=== PATIENT | female | born 1955 | race Caucasian/White ===

== ENCOUNTER 2016-07-16 07:53 | Emergency (ER) | payer OTHER ==
[2016-07-16] MEDS ORDERED: ONDANSETRON 4 MG/2 ML VIAL IVP ONE (08:06)
[2016-07-16] MEDS ORDERED: NS 1,000 ML IV ONE (08:06)
[2016-07-16] MEDS ORDERED: PANTOPRAZOLE SODIUM 40 MG VIAL IVP ONE (08:16)
[2016-07-16 08:25] LABS: % IMMATURE GRANULYOCYTES 0.5 % (0.0-1.1); ABSOLUTE IMMATURE GRANULOCYTES 0.04 10^3/uL (0.00-0.10); ADD DIFF? NO; ADD MORPH? NO; ADD SCAN? NO; ATYPICAL LYMPHOCYTE FLAG 10 (0-99); FRAGMENT RBC FLAG 0 (0-99); HEMOGLOBIN 13.4 g/dL (12.6-16.3); LEFT SHIFT FLG 0 (0-99); LIPEMIA HEMOLYSIS FLAG 90 (0-99); MEAN CELL HEMOGLOBIN 31.1 pg (27.9-34.1); MEAN CELL HEMOGLOBIN CONCENTR. 34.4 g/dL (32.4-36.7); MEAN CELL VOLUME 90.5 fL (81.5-99.8); MEAN PLATELET VOLUME 9.7 fL (8.7-11.7); PLATELET CLUMPS FLAG 0 (0-99); PLATELET COUNT 234 10^3/uL (150-400); RED BLOOD CELL COUNT 4.31 10^6/uL (4.18-5.33)
--- NOTE | 2016-07-16 08:29 | UCPHY ---
H & P Patient Type: New Chief Complaint Nursing Narrative: PAIN BETWEEN SCAPULA AND RUQ PAIN SINCE NIGHT. WOKE UP WITH PAIN. SEEN FRI AT URGENT CARE. GIVEN PRILOSEC. NAUSEA. Time Seen by Provider: 07/16/16 08:03 HPI/ROS: This patient complains of right upper quadrant pain radiating to her back since , 4 days prior to arrival- gradual in onset. She describes the nature the pain as achy in the right upper quadrant and somewhat sharp in her back. The current intensity 6/10 but it has peaked out of 10/10 at times. She feels that both ibuprofen and antacids have diminished her symptoms. She notes no clear exacerbating factors except that when she eats normal food she gets nauseous and vomits. As result the last meal she had a Saturday, 2 days prior to arrival and since then she has been snacking on saltines and milk. Pain does not seem to be positional to her but does seem worse at night. No other clear exacerbating or alleviating factors. At the moment she has no nausea. She was seen at [facility] urgent care clinic on Saturday, 3 days prior to arrival and diagnosed with GERD with a normal urinalysis at that time started on Prilosec. ROS: No fevers or chills. No other constitutional symptoms. HEENT: No URI symptoms. No headache. Neuro: No complaints pulmonary: No cough. No pleuritic element of the pain. No worsening with deep breath. Cardiovascular: No heart palpitations or lightheadedness. No lower extremity swelling. GI: No bloating. She reports mild right lower belly discomfort over the last 24 hours as well. She had normal bowel movements until Saturday but no bowel movements since Saturday. : No urinary symptoms. No hematuria. Integumentary: No skin rash and 10 point ROS is otherwise negative. Source: Patient Exam Limitations: No limitations - Personal History Current Tetanus/Diphtheria Vaccine: Yes Current Tetanus Diphtheria and Acellular Pertussis (TDAP): Unsure - Medical/Surgical History Hx Asthma: No Hx Chronic Respiratory Disease: No Hx Diabetes: No Hx Cardiac Disease: No Hx Renal Disease: No Hx Cirrhosis: No Hx Alcoholism: No Hx HIV/AIDS: No Hx Splenectomy or Spleen Trauma: No Other PMH: PMH:SLEEP APNEA. PSH:OVARIES AND CYST REMOVED 01/13 - Family History Significant Family History: No pertinent family hx - Social History Smoking Status: Never smoked Alcohol Use: Occasionally Drug Use: None - Physical Exam Exam: General Appearance: Alert, no distress. Eyes: Pupils equal and round no pallor or injection. ENT, Mouth: Mucous membranes moist. Respiratory: There are no retractions, lungs are clear to auscultation. Cardiovascular: Regular rate and rhythm. Gastrointestinal: Normoactive to slightly hypoactive bowel sounds. She has moderate right upper quadrant tenderness that is worse with percussion. No significant lower belly tenderness she describes mild fullness feeling in the right lower belly to palpation. No organomegaly. Back: No CVA tenderness Neurological: Alert with no focal deficits Skin: Warm and dry, no rashes. Musculoskeletal: Neck is supple nontender. Extremities are symmetrical, full range of motion. Psychiatric: Mood and affect normal DIFFERENTIAL DIAGNOSIS: After history and physical exam differential diagnosis was considered for symptomatic gallstones, cholecystitis, pancreatitis, gastritis, constipation, viral illness, ureteral stone, pyelonephritis Constitutional: Initial Vital Signs Temperature (C) 36.4 C 07/16/16 07:55 Heart Rate 99 07/16/16 07:55 Respiratory Rate 16 07/16/16 07:55 Blood Pressure 129/62 H 07/16/16 07:55 O2 Sat (%) 96 07/16/16 07:55 O2 Delivery Mode Room Air Allergies/Adverse Reactions: No Known Allergies Allergy (Unverified 07/16/16 08:07) Home Medications: Medication Instructions Recorded Prilosec Unk Dose 07/16/16 Medical Decision Making - Diagnostics EKG Interpretation: 12 lead EKG performed at 9:19 a.m. indication chest pain reveals sinus rhythm at 86 Intervals: Normal throughout [place]: P of 27, QRS of 15, T of 28 ST segments: Normal throughout. Q-waves are notable for anterior cues in V2 Overall assessment: possible old anteroseptal infarct Repeat EKG performed at 11:33 a.m. to rule out interval change-sinus rhythm at 87 without interval changes by my interpretation. Imaging: CT angio chest: Read by Dr. Néstor Beebe-radiologist is negative for PE or thoracic aorta abnormalities. No abnormal findings except for what appears to be a fatty liver though the liver is incompletely visualized. Dr. Beebe recommends a follow-up MRI as an outpatient to be done within the next 2 months ED Course/Re-evaluation: IV, I reviewed labs-normal CBC and comp metabolic panel with trace hematuria at 9:00 a.m. and re-evaluated the patient. On recheck. She clearly does not have CVA tenderness on the right side however she points to an area higher and in the back pain initially realizing this pain actually seems to be right low chest rather than belly in terms of the back component of the right eating pain. This brings up a large differential diagnosis to include potential pleural processes or cardiac process. EKG is added, D-dimer added Patient's EKG is abnormal. We do not have a previous baseline. Her D-dimer is also elevated. Given these findings she is placed on a monitor and given aspirin 324. At around 925 and I spoke to her she reported that her pain had increased to a severe intensity She is given 1 sublingual nitroglycerin. After several nitroglycerin her discomfort is significantly reduced in the right upper quadrant and posterior thorax but she does complain of a severe headache similar to previous headaches. She has been treated with 4 mg of morphine IV and 0.5 inch nitro paste with troponin added and pending. Patient has partial improvement from nitroglycerin down to a 3 or 4/10 discomfort. She remained stable on the monitor with no further complaints. Her initial troponin is normal. I am concerned about potential cardiac source of pain in this patient I counseled her regarding this. Given her ongoing symptoms and abnormal baseline EKG I recommend and observation admission. She requests [facility] due to proximity to her home. I spoke with Dr. Becker-hospitalist at [facility] who accepts patient for transfer for a observation note for chest pain-further evaluation The patient declines [facility] transport. Her is here and she signed AMA to go by private ankle understanding the potential risk of dysrhythmia, cardiac - arrest, . She is stable time of transfer. - Data Points Laboratory Results: Laboratory Results 07/16/16 08:15 07/16/16 08:15 07/16/16 07/16/16 08:50 08:15 WBC 8.69 10^3/uL (3.80-9.50) RBC 4.31 10^6/uL (4.18-5.33) Hgb 13.4 g/dL (12.6-16.3) Hct 39.0 % (38.0-47.0) MCV 90.5 fL (81.5-99.8) MCH 31.1 pg (27.9-34.1) MCHC 34.4 g/dL (32.4-36.7) RDW 12.0 % (11.5-15.2) Plt Count 234 10^3/uL (150-400) MPV 9.7 fL (8.7-11.7) Neut % (Auto) 70.1 % (39.3-74.2) Lymph % (Auto) 16.2 % (15.0-45.0) [place] % (Auto) 12.0 % (4.5-13.0) Eos % (Auto) 0.7 % (0.6-7.6) Baso % (Auto) 0.5 % (0.3-1.7) Nucleat RBC Rel Count 0.0 % (0.0-0.2) Absolute Neuts (auto) 6.10 10^3/uL (1.70-6.50) Absolute Lymphs (auto) 1.41 10^3/uL (1.00-3.00) Absolute Monos (auto) 1.04 H 10^3/uL (0.30-0.80) Absolute Eos (auto) 0.06 10^3/uL (0.03-0.40) Absolute Basos (auto) 0.04 10^3/uL (0.02-0.10) Absolute Nucleated RBC 0.00 10^3/uL (0-0.01) Immature Gran % 0.5 % (0.0-1.1) Immature Gran # 0.04 10^3/uL (0.00-0.10) PT 12.7 SEC (12.0-15.0) INR 0.97 (0.83-1.16) APTT 29.9 SEC (23.0-38.0) D-Dimer 1.75 H ug/mLFEU (0.00-0.50) Sodium 140 mEq/L (134-144) Potassium 4.0 mEq/L (3.5-5.2) Chloride 103 mEq/L (97-110) Carbon Dioxide 28 mEq/l (22-31) Anion Gap 9 mEq/L (8-16) BUN 10 mg/dL (7-23) Creatinine 0.7 mg/dL (0.6-1.0) Estimated GFR > 60 Glucose 106 H mg/dL (70-100) Calcium 9.2 mg/dL (8.5-10.4) Total Bilirubin 0.7 mg/dL (0.1-1.4) AST 18 IU/L (14-46) ALT 31 IU/L (9-52) Alkaline Phosphatase 91 IU/L (38-126) Troponin I < 0.012 ng/mL (0-0.034) Total Protein 6.9 g/dL (6.3-8.2) Albumin 3.5 g/dL (3.5-5.0) Lipase 57.0 IU/L (23-300) Urine Color YELLOW Urine Appearance CLEAR Urine pH 6.0 (5.0-7.5) Ur Specific [place] <= 1.005 (1.002-1.030) Urine Protein NEGATIVE (NEGATIVE) Urine Ketones NEGATIVE (NEGATIVE) Urine Blood TRACE H (NEGATIVE) Urine Nitrate NEGATIVE (NEGATIVE) Urine Bilirubin NEGATIVE (NEGATIVE) Urine Urobilinogen 0.2 EU (0.2-1.0) Ur Leukocyte Esterase NEGATIVE (NEGATIVE) Urine RBC 1-3 /hpf (0-3) Urine WBC 0-1 /hpf (0-3) Ur Epithelial Cells 1+ /lpf (NONE-1+) Urine Bacteria TRACE H /hpf (NONE SEEN) Urine Yeast OCCASIONAL H /hpf (NONE SEEN) Urine Glucose NEGATIVE (NEGATIVE) Medications Given: Discontinued Medications Aspirin (Aspirin) 324 mg PO EDNOW ONE Stop: 07/16/16 09:23 Last Admin: 07/16/16 09:32 Dose: 324 mg Sodium Chloride (Ns) 1,000 mls @ 0 mls/hr IV ONCE ONE PRN Reason: Wide Open Stop: 07/16/16 08:07 Last Admin: 07/16/16 08:15 Dose: 1,000 mls Morphine Sulfate (Morphine) 4 mg IVP EDNOW ONE Stop: 07/16/16 09:39 Last Admin: 07/16/16 09:47 Dose: Not Given Nitroglycerin (Nitrostat) 0.4 mg SL EDNOW ONE Stop: 07/16/16 09:27 Last Admin: 07/16/16 09:32 Dose: 0.4 mg Nitroglycerin (Nitro-Bid 2%) 0.5 inch TP EDNOW ONE Stop: 07/16/16 09:39 Last Admin: 07/16/16 09:47 Dose: 0.5 inch Ondansetron HCl (Zofran) 4 mg IVP EDNOW ONE Stop: 07/16/16 08:07 Last Admin: 07/16/16 08:15 Dose: 4 mg Pantoprazole Sodium (Protonix) 40 mg IVP EDNOW ONE Stop: 07/16/16 08:17 Last Admin: 07/16/16 08:24 Dose: 40 mg Departure - Departure Disposition: Acute Care Hospital [facility] Clinical Impression: Acute chest pain, Fatty infiltration of liver Condition: Fair Referrals: Rosa Leo MD [Primary Care Provider] - As per Instructions - PQRS PQRS Measurement: NA
[2016-07-16 08:37] LABS: ALANINE AMINOTRANSFERASE 31 IU/L (9-52); ALBUMIN 3.5 g/dL (3.5-5.0); ALKALINE PHOSPHATASE 91 IU/L (38-126); ANION GAP 9 mEq/L (8-16); ASPARTATE AMINOTRANSFERASE 18 IU/L (14-46); BILIRUBIN,TOTAL 0.7 mg/dL (0.1-1.4); CALCIUM 9.2 mg/dL (8.5-10.4); CARBON DIOXIDE 28 mEq/l (22-31); CHLORIDE 103 mEq/L (97-110); CREATININE 0.7 mg/dL (0.6-1.0); GLOMERULAR FILTRATION RATE > 60; GLUCOSE 106 mg/dL (70-100); SODIUM 140 mEq/L (134-144); TOTAL PROTEIN 6.9 g/dL (6.3-8.2)
[2016-07-16 09:00] LABS: COLOR YELLOW; LEUKOCYTE ESTERASE,URINE NEGATIVE (NEGATIVE); NITRITE,URINE NEGATIVE (NEGATIVE)
[2016-07-16 09:13] LABS: WBC,URINE 0-1 /hpf (0-3)
[2016-07-16 09:14] LABS: BACTERIA TRACE /hpf (NONE SEEN); YEAST OCCASIONAL /hpf (NONE SEEN)
--- NOTE | 2016-07-16 09:21 | CPEKG ---
Heart Rate: 86 RR Interval: 698 P-R Interval: 144 QRSD Interval: 80 QT Interval: 368 QTC Interval: 440 P [place]: 27 QRS [place]: 15 T Wave [place]: 28 EKG Severity - ABNORMAL ECG - EKG Impression: SINUS RHYTHM EKG Impression: CONSIDER ANTEROSEPTAL INFARCT Electronically Signed By: Abdi Vela 16-Jul-2016 13:24:56
[2016-07-16] MEDS ORDERED: ASPIRIN 81 MG CHEWABLE TAB PO ONE (09:22)
[2016-07-16] MEDS ORDERED: NITROGLYCERIN 0.4 MG BTL SL ONE (09:26)
[2016-07-16] MEDS ORDERED: NITROGLYCERIN 2% 1 GM PACKET TP ONE (09:38)
[2016-07-16 09:47] LABS: APTT 29.9 SEC (23.0-38.0); PROTIME(PATIENT) 12.7 SEC (12.0-15.0)
[2016-07-16 09:48] LABS: INR 0.97 (0.83-1.16)
[2016-07-16] MEDS ORDERED: IOPAMIDOL (ISOVUE 370) 100 ML BTL IV ONE (10:11)
[2016-07-16 10:44] VITALS: TEMP 98.4
--- NOTE | 2016-07-16 11:22 | CT ---
Contrast-Enhanced CT scan of the Chest (CT Pulmonary Angiogram) Clinical History: 61-year-old female with a history of gastroesophageal reflux disease and right uppe r quadrant pain, as well as interscapular pain and an elevated D-dimer of 1.75. Rule out PE. Technique: A timing bolus was used. The patient received 90 mL of IV Isovue-370 without complication, and a multidetector helical CT scan was obtained from the base of the neck inferiorly to the upper a bdomen, with images reformatted at 1.25 mm increments, and reviewed at a variety of window and level settings. Multiplanar reconstructions are reviewed on the workstation. The DFOV is 36 cm. A dose redu ction protocol was used. Comparison Study: None. Findings: CT Angiography of the Chest: The main pulmonary artery, the main right and main left pulmonary arteri es, and the first, second, and third order pulmonary artery segments appear contrast-opacified, with no filling defect to suggest acute or chronic thromboemboli. The thoracic aortic contour is normal, w ith no aneurysm or dissection. There is a normal anatomic arrangement of the great vessels off the ao rtic arch. The visualized upper abdominal aorta is normal. There is no pericardial effusion. There is no interventricular septal bowing, nor is there any reflux of contrast into the intrahepatic IVC. Contrast-Enhanced CT Scan of the Chest: The visualized portions of the thyroid gland are normal. Ther e is no axillary or intrathoracic adenopathy. There are some mild dependent changes seen posteriorly at the lung bases. There is no pneumothorax or pneumomediastinum. The osseous structures are notable for some mild upper thoracic anterolistheses and degenerative disk space narrowing with ventral tract ion osteophytes. There is no lytic or blastic lesion observed. The visualized upper abdomen is notabl e for a catwalk appearance to the left hepatic lobe, terminating anterior to the spleen. While there are areas of diminished attenuation associated with the liver consistent with steatosis, there are al so areas of probable fat-sparing with some geographic heterogeneity. This is challenging to more conf idently assess as this was a uniphasic study (acquired at the time of the arterial phase, before the hepatic veins have yet opacified). There is a subcentimeter hypodensity in the medial segment left he patic lobe, and a 1.7 x 1.2 cm oval-shaped hypodensity in the anterolateral right hepatic lobe with a Hounsfield unit measurement of 15. There is another 1.5 x 1.2 cm cystic structure with a Hounsfield measurement of 11 between the anterior right hepatic lobe and the posterior medial left hepatic lobe. There is a heterogeneous appearance to the spleen (suggestive of arterial phase imaging), with a spl enule seen caudal to the splenic hilum. Impression: 1. There is no CT evidence of pulmonary artery thromboemboli, and the thoracic aorta appears normal. 2. Hepatomegaly with steatosis and probable geographic fat-sparing; however, multiphasic contrast-enh anced MR imaging is suggested for further confirmation. Results were discussed with Dr. Abdi Vela. A test result has been communicated to a licensed care provider and documented in [employer], 11:05:21 A M, 07/16/2016, [employer] Message ID [id number].
--- NOTE | 2016-07-16 11:35 | CPEKG ---
Heart Rate: 87 RR Interval: 690 P-R Interval: 144 QRSD Interval: 74 QT Interval: 352 QTC Interval: 424 P [place]: 26 QRS [place]: 7 T Wave [place]: 38 EKG Severity - ABNORMAL ECG - EKG Impression: SINUS RHYTHM EKG Impression: CONSIDER ANTEROSEPTAL INFARCT Electronically Signed By: Abdi Vela 16-Jul-2016 13:24:42
[2016-07-16 13:23] VITALS: BP 131/77; PULSE 98; RESP 20; O2SAT 95
== END 2016-07-16 13:00 | disposition short-term general hospital (02) ==
LOC: CED 07:53
DX: K76.0 Fatty (change of) liver, not elsewhere classified (principal); R07.9 Chest pain, unspecified; R10.11 Right upper quadrant pain; M54.9 Dorsalgia, unspecified; R11.0 Nausea
CPT/HCPCS: 71275-PO; 80053-PO; 81003-PO; 81015-PO; 83690-PO; 84484-PO; 85025-PO; 85378-PO; 85610-PO; 85730-PO; 96361-PO; 96365-PO; 96374-PO; 96375-PO; G0463-PO; J2405; Q9967